=== PATIENT | male | born 1940 | race Caucasian/White ===

== ENCOUNTER 2024-05-18 00:23 | Emergency (ER) | payer MEDICARE, SELFPAY ==
[2024-05-18 00:28] VITALS: BP 120/88; PULSE 61; RESP 20; TEMP 36.8; O2SAT 95
--- NOTE | 2024-05-18 00:47 | ED.GENADULT ---
HPI - General Adult General Chief complaint: GI Bleed Stated complaint: rectal bleeding Time Seen by Provider: 05/18/24 00:46 Source: patient Mode of arrival: wheelchair Limitations: no limitations History of Present Illness HPI narrative: this is a 83-year-old male who presents to the ED for chief complaint of bleeding hemorrhoid x2 days. Patient reports that he held his blood thinner yesterday. States the bleeding has been intermittent. Denies rectal pain. Denies abdominal pain, nausea, vomiting, diarrhea or troubles with bowel movements. States this is really just a painless bleeding that he has had trouble stopping. patient has history of work related injuries to the left leg and has left AKA present. uses wheelchair for mobility. Related Data Allergies Allergy/AdvReac Type Severity Reaction Status Date / Time adhesive tape Allergy Other Verified 05/18/24 00:32 latex Allergy Other Verified 05/18/24 00:32 Review of Systems Review of Systems: All systems as dictated in HPI Exam Narrative: GENERAL: Well-appearing, well-nourished, and in no acute distress. HEAD: Normocephalic, atraumatic. EYES: PERRLA and EOMI. ENT: Nares clear, no rhinorrhea or epistaxis. Mucous membranes moist. Oropharynx without tonsillar hypertrophy exudate or other lesions. NECK: Supple. No adenopathy or masses. CHEST: No respiratory distress. Clear to auscultation. No wheezes rales or rhonchi HEART: Regular rate and rhythm. No murmur heard. Normal peripheral pulses. ABDOMEN: Soft, nontender, nondistended, normal active bowel sounds. MSK: Normal range of motion. No edema. SKIN: Warm, dry, no rash. NEURO: Alert and oriented x4. No focal deficits. PSYCH: Normal mood and affect. : Rectal exam performed with RN inbound customer service agent present; there is a prolapsed internal hemorrhoid noted. No evidence of thrombosed hemorrhoid. Nontender. No active bleeding currently. The hemorrhoid is somewhat reducible Course Vital Signs Vital signs: Vital Signs Temperature 98.3 F 05/18/24 00:28 Pulse Rate 61 05/18/24 00:28 Respiratory Rate 20 05/18/24 00:28 Blood Pressure 120/88 05/18/24 00:28 Pulse Oximetry 95 05/18/24 00:28 Oxygen Delivery Room Air 05/18/24 00:28 Temperature 98.3 F 05/18/24 00:28 Pulse Rate 61 05/18/24 00:28 Respiratory Rate 20 05/18/24 00:28 Blood Pressure 120/88 05/18/24 00:28 Pulse Oximetry 95 05/18/24 00:28 Oxygen Delivery Room Air 05/18/24 00:28 Medical Decision Making MDM Narrative Medical decision making narrative: this is an 83-year-old male who presents to the ED for chief complaint of a bleeding hemorrhoid for the past couple of days. Vitals are normal. Exam is remarkable for the above. It appears to be an internal hemorrhoid that is somewhat prolapse. There is no active bleeding on exam. No tenderness. No evidence of thrombosed hemorrhoid. Lab work is unremarkable. Patient will be given prescription for Anusol Pt will be discharged in stable condition. Return precautions given and supportive measures discussed. Pt is understanding and agreeable with plan for discharge and follow-up with PCP. Vital Signs Vital Signs: Vital Signs Temperature 98.3 F 05/18/24 00:28 Pulse Rate 61 05/18/24 00:28 Respiratory Rate 20 05/18/24 00:28 Blood Pressure 120/88 05/18/24 00:28 Pulse Oximetry 95 05/18/24 00:28 Oxygen Delivery Room Air 05/18/24 00:28 Temperature 98.3 F 05/18/24 00:28 Pulse Rate 61 05/18/24 00:28 Respiratory Rate 20 05/18/24 00:28 Blood Pressure 120/88 05/18/24 00:28 Pulse Oximetry 95 05/18/24 00:28 Oxygen Delivery Room Air 05/18/24 00:28 Discharge Plan Discharge Clinical Impression: Hemorrhoids Patient Disposition: Home, Self-Care Condition: Stable Instructions: Antibiotic Form, Hemorrhoids (ED) Additional Instructions: your exam today showed evidence of hemorrhoid. Ple
[2024-05-18 01:10] LABS: Basophils Percent Auto 0.4 % (0.2-1.2); Eosinophils Absolute Auto 0.3 K/mm3 (0-0.3); Eosinophils Percent Auto 4.8 % (0-4.4); Hematocrit 38.8 % (42.0-52.0); Hemoglobin 11.9 g/dL (14.0-18.0); Immature Granulocyte Absolute 0.03 K/mm3 (0.00-0.031); Immature Granulocyte Percent A 0.4 % (0-0.5); Lymphocytes Absolute Auto 2.04 K/mm3 (0.9-3.2); Mean Corpuscular HGB Conc 30.7 g/dl (32-36); Mean Corpuscular Hemoglobin 25.3 pg (26-34); Mean Corpuscular Volume 82.6 fl (80-100); Mean Platelet Volume 10.2 fl (7.4-10.4); Monocytes Absolute Auto 0.6 K/mm3 (0.1-0.6); Monocytes Percent Auto 8.1 % (2.6-8.5); Neutrophils Percent Auto 57.3 % (45.5-73.1); Platelet Count Result 256 k/mm3 (150-375); Red Cell Distribution Width 15.7 % (11.5-14.5)
[2024-05-18] MEDS: HYDROCORTISONE ACETATE 25 MG SUPPOSITORY RECTAL (01:15)
[2024-05-18 01:20] LABS: Alanine Aminotransferase 11 U/L (6-50); Alkaline Phosphatase 126 U/L (38-126); Anion Gap 8 mmol/L (4-12); Aspartate Amino Transferase 18 U/L (17-59); Bilirubin,Total 0.6 mg/dL (0.2-1.3); Blood Urea Nitrogen 17 mg/dL (9-20); Calcium 9.3 mg/dL (8.4-10.2); Carbon Dioxide 27 mmol/L (22-30); Chloride 105 mmol/L (98-107); Estimated Glomerular Filt Rate > 60; Glucose 133 mg/dL (65-110); Potassium 3.7 mmol/L (3.4-5.0); Sodium 140 mmol/L (137-145)
[2024-05-18 01:21] LABS: Prothrombin Time 14.1 Seconds (11.1-14.7)
[2024-05-18 01:22] LABS: Partial Thromboplastin Time 32.9 Seconds (22.3-36.8)
== END 2024-05-18 01:35 | disposition home or self-care (01) ==
LOC: ANHED 01:24
PROVIDERS: Emergency Provider Physician Assistant; PCP Internal Medicine
DX: K64.9 Unspecified hemorrhoids (principal); Z79.01 Long term (current) use of anticoagulants
CPT/HCPCS: 36415; 80053; 85025; 85610; 85730; 99283; A9270